=== PATIENT | female | born 1955 | race Two or more races ===

== ENCOUNTER 2016-06-28 11:57 | Observation (INO) | payer MEDICAID ==
[~2016-06-28 11:57] MED LIST: ADVAIR 5001 DISK W/D; ALBUTEROL1.25 MG/3 IH; ALLOPURINOL100 M1 PO; AMBIEN5 M1 PO; ARTIFICIAL TEAR30 ML BOTH EYES; ATARAX10 MG PO; ATIVAN0.5 MG PO; ATIVAN2 M1 PO; BAZA ANTIFUNGAL57 GM; BENZTROPINE ME0.5 M1 PO; BENZTROPINE MESY1 MG; CALCIPOTRIENE TP; CALCIPOTRIENE60 ML TP; CALCIUM 600 W/V1 TAB; CALCIUM 600 W/V1 TAB PO; CHILDREN'S ASPI81 MG PO; CLOBETASOL PROP15 G2 TP; CLOBETASOL PROP50 M1 TP; CLONIDINE HCL0.1 M2 PO; CLOTRIMAZOLE15 G2 TP; CLOZAPINE100 MG; CLOZAPINE100 MG PO; CYMBALTA20 MG; CYMBALTA20 MG PO; CYMBALTA30 M1 PO; CYMBALTA30 MG; CYMBALTA60 MG PO; DDAVP0.2 MG PO; DEEP SEA45 M1; DEPAKOTE ER250 M1 PO; DEPAKOTE ER250 MG; DEPAKOTE ER250 MG PO; DEPAKOTE ER500 M1 PO; DEPAKOTE ER500 MG PO; DUONEB 2.5-0.5 M3 ML; DUONEB 2.5-0.5 M3 ML IH; DURAGESIC1 EAC5 TOP; ENABLEX15 MG; ENABLEX15 MG PO; FERROUS SULFAT325 MG PO; FLONASE ALLERG9.9 ML INH; FLUTICASONE PROP; FOLIC ACID1 M1 PO; FUROSEMIDE80 MG PO; GEODON60 MG PO; GEODON80 MG PO; GLIMEPIRIDE1 MG; GLIMEPIRIDE1 MG PO; GLIPIZIDE5 MG PO; HALOPERIDOL10 M1 PO; HALOPERIDOL10 MG PO; HIPREX1 G PO; HUMALOG100 UNITS/ SC; HUMIRA40 MG/0.2 SC; HYDROCODON-ACE1 EA16 PO; KEPPRA500 M3 PO; LACTASE ENZ PO; LASIX40 M1 PO; LEVEMIR100 UNITS/ SC; LEVOFLOXACIN500 M1 PO; LEVOTHYROXINE50 MCG PO; LIPITOR20 MG; LIPITOR20 MG PO; LIQUITEARS15 ML BOTH EYES; LORATADINE10 M2 PO; LORAZEPAM1 M1 PO; MELOXICAM15 M1 PO; MILK OF MA400 MG/5 M; MILK OF MA400 MG/5 M PO; MILK OF MAGNESIA PO; MULTIVITAMIN1 TAB; MULTIVITAMIN1 TAB PO; NITROFURANTOIN100 M; NITROFURANTOIN100 MG PO; NYAMYC15 GM TP; OLANZAPINE20 M1 PO; OXYBUTYNIN CHLOR5 M2 PO; PAIN RELIEF 5%1 EACH TP; POTASSIUM CHLO20 ME3 PO; POTASSIUM CHLO20 MEQ PO; PRENATAL FORMU1 EAC1 PO; PRILOSEC OTC20 MG; PRILOSEC OTC20 MG PO; PROVENTIL HFA6.7 G1 INH; PROVIGIL100 MG; PROVIGIL100 MG PO; Q-TUSSIN DM SY473 ML PO; RANITIDINE HCL150 M3 PO; RHINOCORT AQUA8.6 GM; RHINOCORT AQUA8.6 GM NS; SENNA PLUS TAB1 EAC1 PO; SENOKOT-S TABLE1 TAB; SEROQUEL400 MG PO; SINGULAIR10 MG; SPIRIVA18 MC1 IH; SPIRIVA18 MCG; SPIRIVA18 MCG IH; SYMBICORT 160-1 PUFF INH; SYMBICORT 16010.2 GM; SYMBICORT 16010.2 GM IH; SYNTHROID137 MCG; SYNTHROID137 MCG PO; SYNTHROID200 MCG PO; SYNTHROID25 MC1 PO; TOVIAZ8 MG PO; TYLENOL325 M2 PO; TYLENOL500 MG; TYLENOL500 MG PO; ULTRAM50 MG; XARELTO15 M1 PO; XARELTO20 M1 PO; [UNRECOGNIZED DRUG - OTHER] TP
[2016-06-28] MEDS ORDERED: ACIDOPHILUS-PE1 EAC1 PO (12:17)
[2016-06-28] MEDS ORDERED: MAGIC MOUTHWASH PO (12:17)
[2016-06-28] MEDS ORDERED: CATAPRES0.1 M1 PO (12:18)
[2016-06-28] MEDS ORDERED: ZYLOPRIM100 M1 PO (12:18)
[2016-06-28] MEDS ORDERED: BENZTROPINE ME0.5 M1 PO (12:18)
[2016-06-28] MEDS ORDERED: DEEP SEA45 M1 (12:19)
[2016-06-28] MEDS ORDERED: DEPAKOTE ER250 M1 PO (12:19)
[2016-06-28] MEDS ORDERED: DEPAKOTE ER500 M1 PO (12:20)
[2016-06-28] MEDS ORDERED: FLONASE ALLERG9.9 ML (12:21)
[2016-06-28] MEDS ORDERED: CYMBALTA30 M1 PO (12:21)
[2016-06-28] MEDS ORDERED: FEOSOL325 M1 PO (12:21)
[2016-06-28] MEDS ORDERED: FOLIC ACID1 M1 PO (12:22)
[2016-06-28] MEDS ORDERED: HALOPERIDOL10 M1 PO ×3 (12:22→12:32)
[2016-06-28] MEDS ORDERED: LACTASE PO (12:23)
[2016-06-28] MEDS ORDERED: ENULOSE10 GM/151 PO (12:24)
[2016-06-28] MEDS ORDERED: KEPPRA500 M3 PO (12:24)
[2016-06-28] MEDS ORDERED: SYNTHROID125 MC1 PO (12:24)
[2016-06-28] MEDS ORDERED: SYNTHROID25 MC1 PO (12:25)
[2016-06-28] MEDS ORDERED: ATIVAN0.5 M1 PO (12:25)
[2016-06-28] MEDS ORDERED: CLARITIN10 M6 PO (12:25)
[2016-06-28] MEDS ORDERED: OLANZAPINE20 M1 PO (12:26)
[2016-06-28] MEDS ORDERED: CRANBERRY450 M4 PO (12:26)
[2016-06-28] MEDS ORDERED: ESSENTIAL OIL PO (12:27)
[2016-06-28] MEDS ORDERED: RANITIDINE HCL150 M2 PO (12:28)
[2016-06-28] MEDS ORDERED: PRENATAL COMPL1 EACH PO (12:28)
[2016-06-28] MEDS ORDERED: SPIRIVA18 MC1 INH (12:28)
[2016-06-28] MEDS ORDERED: AMBIEN5 M1 PO (12:29)
[2016-06-28] MEDS ORDERED: SYMBICORT 160-1 PUFF INH (12:29)
[2016-06-28] MEDS ORDERED: TYLENOL325 M2 PO (12:29)
[2016-06-28] MEDS ORDERED: VITAMIN D250000 UNI1 PO (12:29)
[2016-06-28] MEDS ORDERED: BISCOLAX10 MG PR (12:30)
[2016-06-28] MEDS ORDERED: CLINDAMYCIN HC150 M1 PO (12:30)
[2016-06-28] MEDS ORDERED: ENEMA READY-TO133 M1 PR (12:31)
[2016-06-28] MEDS ORDERED: DEX4 GLUCOSE4 GM PO (12:31)
[2016-06-28] MEDS ORDERED: HYDROCODON-ACE1 EA16 PO ×2 (12:32→12:33)
[2016-06-28] MEDS ORDERED: LORAZEPAM2 MG/1 M2 IM (12:33)
[2016-06-28] MEDS ORDERED: MILK OF MAGNESIA PO (12:34)
[2016-06-28] MEDS ORDERED: ROBAFEN-DM SYR118 ML PO (12:34)
[2016-06-28] MEDS ORDERED: SENNA PLUS TAB1 EAC1 PO (12:35)
[2016-06-28] MEDS ORDERED: HUMALOG100 UNITS/ SC (12:36)
[2016-06-28] MEDS ORDERED: LEVEMIR100 UNITS/ SC (12:37)
[2016-06-28] MEDS ORDERED: PROCRIT20000 UNIT SC (12:38)
[2016-06-28] MEDS ORDERED: CALCITRIOL100 GM TP (12:38)
[2016-06-28] MEDS ORDERED: TERA-GEL TAR118 ML TP (12:39)
[2016-06-28] MEDS ORDERED: TRIAMCINOLONE A15 G4 TP (12:39)
[2016-06-28] MEDS ORDERED: ALBUTEROL2.5 MG/3 M INH (12:40)
[2016-06-28] MEDS ORDERED: GLUCAGON HCL1 MG IM (12:41)
[2016-06-28 13:02] LABS: BASO % 0.3 % (0-2); EOSINOPHIL ABSOLUTE COUNT 0.4 tho/cmm (0.0-0.7); HCT-HEMATOCRIT 30.8 % (34.0-49.0); HGB-HEMOGLOBIN 10.2 gm/dl (12.0-15.5); IMMATURE GRANULOCYTES ABSOLUTE 0.09 tho/cmm (0-0.03); IMMATURE GRANULOCYTES PERCENT 1.3 % (0-0.3); LYMPH % 23.1 % (20-45); LYMPH ABSOLUTE COUNT 1.7 tho/cmm (0.8-4.5); MCH (MEAN CORPUSCULAR HGB) 31.4 pg (28.0-32.0); MCHC MEAN CORPUSCULAR HGB CONC 33.1 % (32.0-36.0); MCV (MEAN CELL VOLUME) 94.8 fl (82.0-96.0); MEAN PLATELET VOLUME 8.9 cmc (9.4-12.4); MONO % 10.3 % (0-12); MONOCYTE ABSOLUTE COUNT 0.7 tho/cmm (0.0-1.2); NEUTROPHIL ABSOLUTE COUNT 4.3 tho/cmm (1.6-8.0); NEUTROPHIL-AUTOMATED 4.3 tho/cmm (1.6-8.0); PLATELET COUNT 151 tho/cmm (150-450); RED BLOOD COUNT 3.25 mil/cmm (4.00-5.20); RED CELL DISTRIBUTION WIDTH 14.8 % (12.4-16.4); WHITE BLOOD COUNT 7.2 tho/cmm (4.0-10.0)
[2016-06-28 13:21] LABS: ALB/GLOB RATIO 0.6 (0.8-2.0); ALBUMIN 2.8 g/dl (3.5-5.0); ALKALINE PHOSPHATASE 274 U/L (33-138); ALT/SGPT 45 U/L (12-78); ANION GAP 11 mmol/L (0-20); AST/SGOT 42 U/L (10-40); BILIRUBIN,TOTAL 0.4 mg/dl (0-1.5); BLOOD UREA NITROGEN 23 mg/dl (6-24); CALCIUM 9.1 mg/dl (8.5-10.5); CARBON DIOXIDE-VENOUS 28 mmol/L (22-32); CHLORIDE 106 mmol/l (96-110); CREATININE 1.24 mg/dl (0.50-1.10); GLUCOSE 134 mg/dL (70-110); LIPASE 103 U/L (73-393); POTASSIUM 4.3 mmol/L (3.7-5.1); SODIUM 141 mmol/L (135-145); eGFR VALUE FOR BLACK 55 mL/Min
[2016-06-28 13:40] LABS: URINE BILIRUBIN NEGATIVE (NEG); URINE BLOOD MODERATE (NEG); URINE GLUCOSE (UA) NEGATIVE (NEG); URINE KETONE NEGATIVE (NEG); URINE LEUKOCYTE ESTERASE POSITIVE (NEG); URINE NITRITE NEGATIVE (NEG); URINE PROTEIN MODERATE (NEG)
[2016-06-28 13:44] LABS: URINE APPEARANCE HAZY; URINE COLOR PALE YELLOW
[2016-06-28 14:02] LABS: URINE BACTERIA 2+; URINE RBC 0-1 /[HPF] (0-5); URINE WBC FULL FIELD /[HPF] (0-5)
[2016-06-29 04:41] LABS: BASO % 0.1 % (0-2); EOS % 4.6 % (0-7); EOSINOPHIL ABSOLUTE COUNT 0.4 tho/cmm (0.0-0.7); HCT-HEMATOCRIT 28.3 % (34.0-49.0); HGB-HEMOGLOBIN 9.4 gm/dl (12.0-15.5); IMMATURE GRANULOCYTES ABSOLUTE 0.08 tho/cmm (0-0.03); IMMATURE GRANULOCYTES PERCENT 1.1 % (0-0.3); LYMPH % 23.3 % (20-45); LYMPH ABSOLUTE COUNT 1.8 tho/cmm (0.8-4.5); MCH (MEAN CORPUSCULAR HGB) 31.6 pg (28.0-32.0); MCHC MEAN CORPUSCULAR HGB CONC 33.2 % (32.0-36.0); MCV (MEAN CELL VOLUME) 95.3 fl (82.0-96.0); MEAN PLATELET VOLUME 8.9 cmc (9.4-12.4); MONO % 7.8 % (0-12); MONOCYTE ABSOLUTE COUNT 0.6 tho/cmm (0.0-1.2); NEUTROPHIL ABSOLUTE COUNT 4.8 tho/cmm (1.6-8.0); NEUTROPHIL-AUTOMATED 4.8 tho/cmm (1.6-8.0); NEUTROPHILS % 63.1 % (40-80); PLATELET COUNT 143 tho/cmm (150-450); RED BLOOD COUNT 2.97 mil/cmm (4.00-5.20); WHITE BLOOD COUNT 7.6 tho/cmm (4.0-10.0)
[2016-06-29 05:01] LABS: ANION GAP 11 mmol/L (0-20); BLOOD UREA NITROGEN 23 mg/dl (6-24); CALCIUM 8.4 mg/dl (8.5-10.5); CARBON DIOXIDE-VENOUS 29 mmol/L (22-32); CHLORIDE 109 mmol/l (96-110); CREATININE 1.16 mg/dl (0.50-1.10); GLUCOSE 115 mg/dL (70-110); POTASSIUM 4.9 mmol/L (3.7-5.1); SODIUM 144 mmol/L (135-145); eGFR VALUE FOR BLACK 59 mL/Min
== END 2016-06-29 16:00 ==
LOC: EDMED 11:57 → EMR2 16:21 → CAR1 18:16
PROVIDERS: Emergency Medicine; Internal Medicine; Nurse Practitioner Acute Care; ADMIT Hospitalist
DX: R10.9 Unspecified abdominal pain (principal); K59.00 Constipation, unspecified; N39.0 Urinary tract infection, site not specified; F25.9 Schizoaffective disorder, unspecified; R16.2 Hepatomegaly with splenomegaly, not elsewhere classified; E11.9 Type 2 diabetes mellitus without complications; N17.9 Acute kidney failure, unspecified; I10 Essential (primary) hypertension; G47.33 Obstructive sleep apnea (adult) (pediatric); G40.909 Epilepsy, unspecified, not intractable, without status epilepticus; J44.9 Chronic obstructive pulmonary disease, unspecified; F41.9 Anxiety disorder, unspecified; F32.9 Major depressive disorder, single episode, unspecified; Z88.0 Allergy status to penicillin; Z88.1 Allergy status to other antibiotic agents; Z88.2 Allergy status to sulfonamides; Z88.8 Allergy status to other drugs, medicaments and biological substances; Z87.11 Personal history of peptic ulcer disease; Z90.49 Acquired absence of other specified parts of digestive tract; Z90.710 Acquired absence of both cervix and uterus; Z79.4 Long term (current) use of insulin; Z79.899 Other long term (current) drug therapy; Z98.890 Other specified postprocedural states
CPT/HCPCS: G0378; G8978-GP-CJ; G8979-GP-CJ; G8980-GP-CJ; J1815; J2405; J7030